=== PATIENT | female | born 1990 | race American Indian/Alaskan Native ===

== ENCOUNTER 2018-09-06 02:12 | Emergency (ER) | payer MEDICAID ==
[2018-09-06 02:45] VITALS: RESP 18; TEMP 99.2; O2SAT 100; BMI 28.0
[2018-09-06] MEDS ORDERED: Naproxen 550 mg Tab PO STA (03:06)
--- NOTE | 2018-09-06 03:12 | ED PDOC ---
Arrival/HPI - General Chief Complaint: Headache Time Seen by Provider: 09/06/18 02:30 Historian: Patient - History of Present Illness Narrative History of Present Illness (Text): 09/06/18 03:08 28 year old female, whose past medical history includes asthma, presents to the emergency department with headache, for 1 week. Patient states it feels like pressure around her forehead and face. Patient also describes pressure and po pping sensation in her ears. Patient informs having had a tooth infection and taking antibiotics for it until yesterday. Patient informs taking motrin for the pain, with some relief, but denies taking any today. Patient states headache woke her from her sleep. Patient denies any smoking, alcohol, or drug use. Patient also denies any visual changes, neck pain, cough, rhinorrhea, or any other complaints. Time/Duration: 1 week Symptom Onset: Gradual Symptom Course: Unchanged Quality: Pressure Context: Home Past Medical History - Provider Review Nursing Documentation Reviewed: Yes - Infectious Disease Hx of Infectious Diseases: None - Tetanus Immunization Tetanus Immunization: Unknown - Cardiac Hx Pacemaker: No - Pulmonary Hx Asthma: Yes - Neurological Hx Paralysis: No - HEENT Hx HEENT Disorder: No - Renal Hx Renal Disorder: No - Endocrine/Metabolic Hx Endocrine Disorders: No - Hematological/Oncological Hx Blood Transfusions: No Hx Blood Transfusion Reaction: No - Integumentary Hx Dermatological Disorder: No - Musculoskeletal/Rheumatological Hx Musculoskeletal Disorders: No - Gastrointestinal Hx Gastroesophageal Reflux: Yes - Genitourinary/Gynecological Hx Genitourinary Disorders: No - Psychiatric Hx Emotional Abuse: No Hx Physical Abuse: No Hx Substance Use: No - Past Surgical History Past Surgical History: No Previous - Surgical History Other/Comment: ENDOSCOPY - Anesthesia Hx Anesthesia: No Hx Anesthesia Reactions: No Hx Malignant Hyperthermia: No - Suicidal Assessment Feels Threatened In Home Enviroment: No Family/Social History - Physician Review Nursing Documentation Reviewed: Yes Family/Social History: No Known Family HX Smoking Status: Never Smoked Hx Alcohol Use: Yes (SOCIALLY) Frequency of alcohol use: Socially Hx Substance Use: No Hx Substance Use Treatment: No Allergies/Home Meds Allergies/Adverse Reactions: Allergies egg Adverse Reaction (Verified 09/06/18 02:52) ANGIOEDEMA Review of Systems - Physician Review All systems were reviewed & negative as marked: Yes - Review of Systems Eyes: absent: Vision Changes ENT: absent: Rhinorrhea Respiratory: absent: Cough Musculoskeletal: absent: Neck Pain Neurological: Headache Physical Exam Vital Signs Reviewed: Yes Vital Signs Temp Pulse Resp BP Pulse Ox 09/06/18 02:25 99.2 F 86 18 107/62 100 Temperature: Afebrile Blood Pressure: Normal Pulse: Regular Respiratory Rate: Normal Appearance: Positive for: Well-Appearing, Non-Toxic, Comfortable Pain Distress: None Mental Status: Positive for: Alert and Oriented X 3 - Systems Exam Head: Present: Atraumatic, Normocephalic Pupils: Present: PERRL Extroacular Muscles: Present: EOMI Conjunctiva: Present: Normal Mouth: Present: Moist Mucous Membranes, Other (Tender to maxillar sinuses) Nose (Internal): Present: Boggy, Other (Left Turbinate swollen; mucous membranes pink bilaterally). No: Rhinorrhea Neck: Present: Normal Range of Motion, Other (Supple; Full) Respiratory/Chest: Present: Clear to Auscultation, Good Air Exchange. No: Respiratory Distress, Accessory Muscle Use Cardiovascular: Present: Regular Rate and Rhythm, Normal S1, S2. No: Murmurs Abdomen: No: Tenderness, Distention, Peritoneal Signs Back: Present: Normal Inspection Upper Extremity: Present: Normal Inspection. No: Cyanosis, Edema Lower Extremity: Present: Normal Inspection. No: Edema Neurological: Present: Speech Normal Skin: Present: Warm, Dry, Normal Color. No: Rashes Psychiatric: Present: Alert, Oriented x 3, Normal Insight, Normal Concentration Medical Decision Making ED Course and Treatment: 09/06/18 03:18 Impression: 28 year old female presents with headache Plan: -- Naproxen -- Sudafed -- Urine -- Reassess and disposition Prior Visits: Notes and results from previous visits were reviewed. Progress Notes: 09/06/18 03:51 Upon reassessment patient states felling better and would like to go home. Patient is very well appearing and non-toxic. Vital signs are stable. I discussed the results of the work-up, diagnosis and treatment. Written discharge instructions were provided to patient. Additional verbal instructions were given and discussed with patient. We discussed the importance of follow up with PCP/consultants. I also reiterated reasons to immediately return to the ER including: worsening in current symptoms and/or new, continued, or concerning symptoms. Pt understood and agreed. - Medication Orders Current Medication Orders: Naproxen (Anaprox) 500 mg PO STAT STA Stop: 09/06/18 03:07 Pseudoephedrine HCl (Sudafed Tab) 60 mg PO STAT STA Stop: 09/06/18 03:06 - Scribe Statement The provider has reviewed the documentation as recorded by the Yeibe Cedric Barfield Provider Scribe Attestation: All medical record entries made by the Scribe were at my direction and personally dictated by me. I have reviewed the chart and agree that the record accurately reflects my personal performance of the history, physical exam, medical decision making, and the department course for this patient. I have also personally directed, reviewed, and agree with the discharge instructions and disposition. Disposition/Present on Arrival - Present on Arrival Any Indicators Present on Arrival: No History of DVT/PE: No History of Uncontrolled Diabetes: No Urinary Catheter: No History of Decub. Ulcer: No History Surgical Site Infection Following: None - Disposition Have Diagnosis and Disposition been Completed?: Yes Diagnosis: Sinus headache Disposition: HOME/ ROUTINE Disposition Time: 03:50 Patient Plan: Discharge Patient Problems: Current Active Problems Problem Status Onset Sinus headache Acute Condition: IMPROVED Discharge Instructions (ExitCare): Sinus Headache (DC) Prescriptions: Naproxen [Naprosyn Tab] 500 mg PO BID PRN #20 tab PRN Reason: Headache Referrals: Mario Yu MD [Primary Care Provider] - Follow up with primary Forms: [employer] (German)
[2018-09-06 03:56] VITALS: BP 112/60; PULSE 80
== END 2018-09-06 03:55 | disposition home or self-care (01) ==
LOC: ED 02:12
DX: R51 Headache (principal)

== ENCOUNTER 2018-09-09 05:58 | Emergency (ER) | payer MEDICAID ==
[2018-09-09 05:58] VITALS: BMI 28.0
[2018-09-09 06:47] VITALS: RESP 18; O2SAT 100
--- NOTE | 2018-09-09 07:15 | ED PDOC ---
Arrival/HPI <Karrie Velasquez - Last Filed: 09/09/18 14:06> - General Historian: Patient - History of Present Illness Narrative History of Present Illness (Text): 09/09/18 07:32 28F with a past medical history of Asthma presents to the Emergency department with a one week history of headaches, sinus congestion and facial pressure. Pt recently presented to [facility] Emergency department on 09/06 and she was sent home with Naproxen and A Decongestant. Pt has been taking them as well as vicks rub but has had no relief. States headaches is worse when she lays down flat or extends her head. She goes to a chiropractor for her chronic neck arm and leg pains. Pt is very anxious about this headache and reports sleep disturbances associated with this. She also complains of ear fullness and popping. Pt also recently had a dental procedure resulting in a infection which required antibiotics. Of note, Pt did not buy the pseudophed as recommended, pt had imoproved when it was given on last Emergency department visit. ROS: POS+ MARIEE, sinus congest, popping in ears, worse w/ extension, nasal congestion, recent sick (tooth infection) NEG- nausea, vomiting, fevers, chills, chest pain, short of breath, cough, blood w/ BMs, recent fall, 09/09/18 07:42 <Ascencion Garner - Last Filed: 09/09/18 15:38> - General Chief Complaint: Headache Time Seen by Provider: 09/09/18 07:10 Past Medical History - Infectious Disease Hx of Infectious Diseases: None - Tetanus Immunization Tetanus Immunization: Unknown - Cardiac Hx Pacemaker: No - Pulmonary Hx Asthma: Yes - Neurological Hx Paralysis: No - HEENT Hx HEENT Disorder: No - Renal Hx Renal Disorder: No - Endocrine/Metabolic Hx Endocrine Disorders: No - Hematological/Oncological Hx Blood Transfusions: No Hx Blood Transfusion Reaction: No - Integumentary Hx Dermatological Disorder: No - Musculoskeletal/Rheumatological Hx Musculoskeletal Disorders: No - Gastrointestinal Hx Gastroesophageal Reflux: Yes - Genitourinary/Gynecological Hx Genitourinary Disorders: No - Psychiatric Hx Emotional Abuse: No Hx Physical Abuse: No Hx Substance Use: No - Past Surgical History Past Surgical History: No Previous - Surgical History Other/Comment: ENDOSCOPY - Anesthesia Hx Anesthesia: No Hx Anesthesia Reactions: No Hx Malignant Hyperthermia: No - Suicidal Assessment Feels Threatened In Home Enviroment: No <Ascencion Garner - Last Filed: 09/09/18 15:38> Family/Social History Family/Social History: Unknown Family HX Smoking Status: Never Smoked Hx Alcohol Use: Yes (SOCIALLY) Hx Substance Use: No Hx Substance Use Treatment: No <Ascencion Garner - Last Filed: 09/09/18 15:38> Allergies/Home Meds <Karrie Velasquez - Last Filed: 09/09/18 14:06> <Ascencion Garner - Last Filed: 09/09/18 15:38> Allergies/Adverse Reactions: Allergies egg Adverse Reaction (Verified 09/09/18 06:53) ANGIOEDEMA Review of Systems - Physician Review All systems were reviewed & negative as marked: Yes (as per HPI) <Ascencion Garner - Last Filed: 09/09/18 15:38> Physical Exam Vital Signs Temp Pulse Resp BP Pulse Ox 09/09/18 06:46 98.2 F 83 18 127/53 L 100 <Karrie Velasquez - Last Filed: 09/09/18 14:06> - Physical Exam Narrative Physical Exam (Text): 09/09/18 08:02 Pt is smiling sitting comfortably in bed, pt in no acute distress Vital Signs Reviewed: Yes Vital Signs Temp Pulse Resp BP Pulse Ox 09/09/18 06:46 98.2 F 83 18 127/53 L 100 - Systems Exam Head: Present: Atraumatic, Normocephalic, Tenderness (bilaterl frontal and maxillary sinuses) Pupils: Present: PERRL Extroacular Muscles: Present: EOMI. No: Gaze Palsy Conjunctiva: Present: Normal Ears: Present: Other (mild fluid seen behind bilateral TMs) Mouth: Present: Moist Mucous Membranes, Normal Tounge Nose (Internal): Present: Other (swollen bilateral turbinates) Neck: Present: Normal Range of Motion. No: Meningeal Signs Respiratory/Chest: Present: Clear to Auscultation Cardiovascular: Present: Regular Rate and Rhythm, Normal S1, S2 Abdomen: No: Tenderness, Distention Neurological: Present: GCS=15, CN II-XII Intact, Speech Normal, Motor Func Grossly Intact, Normal Sensory Function, Other (strenght 5/5 in upper and lower extremitites bilaterally) Skin: Present: Warm, Normal Color Psychiatric: Present: Alert, Oriented x 3, Anxious <Ascencion Garner - Last Filed: 09/09/18 15:38> Medical Decision Making ED Course and Treatment: In agreement with resident note, which includes further HPI details. Patient was seen and evaluated with resident, came up with plan and treatment together. <Karrie Velasquez - Last Filed: 09/09/18 14:06> - Medication Orders Current Medication Orders: 09/09/18 08:03 Pt is instructed to purchase OTC pseudophed <Ascencion Garner - Last Filed: 09/09/18 15:38> Disposition/Present on Arrival <VelasquezKarrie - Last Filed: 09/09/18 14:06> - Present on Arrival Any Indicators Present on Arrival: No History of DVT/PE: No History of Uncontrolled Diabetes: No Urinary Catheter: No History of Decub. Ulcer: No History Surgical Site Infection Following: None - Disposition Have Diagnosis and Disposition been Completed?: Yes Disposition Time: 08:04 Patient Plan: Discharge <Ascencion Garner - Last Filed: 09/09/18 15:38> - Disposition Diagnosis: Sinus headache Disposition: HOME/ ROUTINE Condition: GOOD Discharge Instructions (ExitCare): Sinus Headache (DC) Additional Instructions: DESTINEE THOMAS, thank you for letting us take care of you today. Your provider was Karrie Velasquez MD and you were treated for headache. The emergency medical care you received today was directed at your acute symptoms. If you were prescribed any medication, please fill it and take as directed. It may take several days for your symptoms to resolve. Return to the Emergency Department if your symptoms worsen, do not improve, or if you have any other problems. Please contact your doctor in 1-2 days for follow up appointment. Bring any paperwork you were given at discharge with you along with any medications you are taking to your follow up visit. Our treatment cannot replace ongoing medical care by a primary care provider outside of the emergency department. Thank you for allowing the [facility] team to be part of your care today. Referrals: Carlos Yu MD [Primary Care Provider] - Follow up with primary Forms: [employer] (Greek)
[2018-09-09 09:23] VITALS: BP 130/84; PULSE 81; TEMP 98
== END 2018-09-09 08:20 | disposition home or self-care (01) ==
LOC: ED 05:58
DX: R51 Headache (principal)

== ENCOUNTER 2018-10-18 17:14 | Emergency (ER) | payer MEDICAID ==
[2018-10-18 17:22] VITALS: BMI 29.7
[2018-10-18 17:49] VITALS: BP 116/83; PULSE 77; RESP 18; O2SAT 100
--- NOTE | 2018-10-18 17:54 | ED PDOC ---
Arrival/HPI - General Chief Complaint: Chest Pain Time Seen by Provider: 10/18/18 17:18 Historian: Patient - History of Present Illness Narrative History of Present Illness (Text): 10/18/18 17:57 28 yo F with no PMH, reports sternal chest pain which started this afternoon while she was resting at home. She also c/o 2 month h/o pain, weakness, numbness to the L hand, wrist and arm. Otherwise: (-) radiation, (-) diaphoresis, (-) dyspnea, (-) SOB, (-) pleuritic component, (-) ripping or tearing quality, (-) positional component, (-) exertional component, (-) fever, (-) URI, (-) dizziness, (-) syncope, (-) nausea, (-) vomiting, (-) calf swelling/pain, (-) neuro deficits, (-) trauma, (-) injury. PMD [place] Past Medical History - Infectious Disease Hx of Infectious Diseases: None - Tetanus Immunization Tetanus Immunization: Unknown - Cardiac Hx Pacemaker: No - Pulmonary Hx Asthma: Yes - Neurological Hx Paralysis: No - HEENT Hx HEENT Disorder: No - Renal Hx Renal Disorder: No - Endocrine/Metabolic Hx Endocrine Disorders: No - Hematological/Oncological Hx Blood Transfusions: No Hx Blood Transfusion Reaction: No - Integumentary Hx Dermatological Disorder: No - Musculoskeletal/Rheumatological Hx Musculoskeletal Disorders: No - Gastrointestinal Hx Gastroesophageal Reflux: Yes - Genitourinary/Gynecological Hx Genitourinary Disorders: No - Psychiatric Hx Emotional Abuse: No Hx Physical Abuse: No Hx Substance Use: No - Past Surgical History Past Surgical History: No Previous - Surgical History Other/Comment: ENDOSCOPY - Anesthesia Hx Anesthesia: No Hx Anesthesia Reactions: No Hx Malignant Hyperthermia: No - Suicidal Assessment Feels Threatened In Home Enviroment: No Family/Social History Family/Social History: Hypertension Smoking Status: Never Smoked Hx Alcohol Use: Yes (SOCIALLY) Frequency of alcohol use: Socially Hx Substance Use: No Hx Substance Use Treatment: No Allergies/Home Meds Allergies/Adverse Reactions: Allergies egg Adverse Reaction (Verified 10/18/18 17:22) ANGIOEDEMA Review of Systems - Review of Systems Constitutional: absent: Fatigue, Fevers Respiratory: absent: SOB, Cough Cardiovascular: Chest Pain. absent: Palpitations Gastrointestinal: absent: Abdominal Pain, Nausea, Vomiting Musculoskeletal: Arthralgias, Myalgias. absent: Back Pain, Neck Pain Skin: absent: Rash, Pruritis, Skin Lesions Neurological: absent: Headache, Dizziness Physical Exam Vital Signs Pulse Resp BP Pulse Ox 10/18/18 17:49 77 18 116/83 100 Blood Pressure: Normal Pulse: Regular Respiratory Rate: Normal Appearance: Positive for: Well-Appearing, Non-Toxic, Comfortable Pain Distress: None Mental Status: Positive for: Alert and Oriented X 3 - Systems Exam Head: Present: Atraumatic, Normocephalic Pupils: Present: PERRL Extroacular Muscles: Present: EOMI Conjunctiva: Present: Normal Mouth: Present: Moist Mucous Membranes Neck: Present: Normal Range of Motion Respiratory/Chest: Present: Clear to Auscultation, Good Air Exchange. No: Respiratory Distress, Accessory Muscle Use, Tender to Palpation Cardiovascular: Present: Regular Rate and Rhythm, Normal S1, S2. No: Murmurs Abdomen: No: Tenderness, Distention, Peritoneal Signs Back: Present: Normal Inspection Upper Extremity: Present: Normal Inspection, Normal ROM, NORMAL PULSES, Neurovascularly Intact, Capillary Refill < 2s, Norm 2-Pt Discrimination. No: Cyanosis, Edema, Tenderness, Swelling, Erythema, Temperature Abnormalties, Deformity Lower Extremity: Present: Normal Inspection. No: Edema Neurological: Present: GCS=15, CN II-XII Intact, Speech Normal, Motor Func Grossly Intact, Normal Sensory Function Skin: Present: Warm, Dry, Normal Color. No: Rashes Psychiatric: Present: Alert, Oriented x 3, Normal Insight, Normal Concentration Medical Decision Making ED Course and Treatment: 10/18/18 17:54 EKG: NSR at 76 bpm, (-) acute ST changes, as read by PA. Pre-made cock up splint applied. Advised to follow up with primary care physician in 1-2 days without fail. Advised to take medication as prescribed. Return to the emergency room at any time for any new or worsening symptoms. Patient states she fully agrees with and understands discharge instructions. States that she agrees with the plan and disposition. Verbalized and repeated discharge instructions and plan. I have given the patient opportunity to ask any additional questions. - PA / SNOW REMOVING SUPERVISOR / Resident Statement MD/DO has reviewed & agrees with the documentation as recorded. Disposition/Present on Arrival - Present on Arrival Any Indicators Present on Arrival: No History of DVT/PE: No History of Uncontrolled Diabetes: No Urinary Catheter: No History of Decub. Ulcer: No History Surgical Site Infection Following: None - Disposition Have Diagnosis and Disposition been Completed?: Yes Diagnosis: Chest pain, Left arm pain Disposition: HOME/ ROUTINE Disposition Time: 17:50 Patient Plan: Discharge Patient Problems: Current Active Problems Problem Status Onset Chest pain Acute Left arm pain Acute Condition: STABLE Discharge Instructions (ExitCare): Chest Pain (ED) Additional Instructions: Thank you for letting us take care of you today. You were treated for chest pain, left arm/hand pain, possible carpal tunnel syndrome. The emergency medical care you received today was directed at your acute symptoms. If you were prescribed any medication, please fill it and take as directed. It may take several days for your symptoms to resolve. Return to the Emergency Department if your symptoms worsen, do not improve, or if you have any other problems. Please contact your doctor in 2 days for re-evaluation and follow up. Bring any paperwork you were given at discharge with you along with any medications you are taking to your follow up visit. Our treatment cannot replace ongoing medical care by a primary care provider (PCP) outside of the emergency department. Thank you for allowing the [facility] team to be part of your care today. Prescriptions: Naproxen 500 mg PO BID #30 tab Forms: [employer] (Greek), WORK NOTE
--- NOTE | 2018-10-18 23:09 | CARD ---
APPROVED REPORT Date of service: 10/18/2018 EKG Measurement Heart [id number] <Conclusion> Normal sinus rhythm Normal ECG
== END 2018-10-18 18:12 | disposition home or self-care (01) ==
LOC: ED 17:14
DX: R07.9 Chest pain, unspecified (principal); M79.602 Pain in left arm

== ENCOUNTER 2018-11-09 00:22 | Emergency (ER) | payer MEDICAID ==
[2018-11-09 00:29] VITALS: BP 123/75; PULSE 86; RESP 18; TEMP 97.8; O2SAT 98; BMI 30.5
--- NOTE | 2018-11-09 00:35 | ED PDOC ---
Arrival/HPI - General Chief Complaint: Lower Extremity Problem/Injury Historian: Patient - History of Present Illness Narrative History of Present Illness (Text): 11/09/18 00:32 28 y/o female, no significant pmh, nkda, c/o lt. calf pain x 1 week with no fall or trauma. Pt. stated that she stands alot, no numbness or tingling, no rash, no night sweat, no dizziness, not on control, no other medical or psychological complaints. Past Medical History - Provider Review Nursing Documentation Reviewed: Yes - Infectious Disease Hx of Infectious Diseases: None - Tetanus Immunization Tetanus Immunization: Unknown - Reproductive Currently : Unknown - Cardiac Hx Pacemaker: No - Pulmonary Hx Asthma: Yes - Neurological Hx Paralysis: No - HEENT Hx HEENT Disorder: No - Renal Hx Renal Disorder: No - Endocrine/Metabolic Hx Endocrine Disorders: No - Hematological/Oncological Hx Blood Transfusions: No Hx Blood Transfusion Reaction: No - Integumentary Hx Dermatological Disorder: No - Musculoskeletal/Rheumatological Hx Musculoskeletal Disorders: No - Gastrointestinal Hx Gastroesophageal Reflux: Yes - Genitourinary/Gynecological Hx Genitourinary Disorders: No - Psychiatric Hx Emotional Abuse: No Hx Physical Abuse: No Hx Substance Use: No - Past Surgical History Past Surgical History: No Previous - Surgical History Other/Comment: ENDOSCOPY - Anesthesia Hx Anesthesia: No Hx Anesthesia Reactions: No Hx Malignant Hyperthermia: No - Suicidal Assessment Feels Threatened In Home Enviroment: No Family/Social History - Physician Review Nursing Documentation Reviewed: Yes Family/Social History: Unknown Family HX Smoking Status: Never Smoked Hx Alcohol Use: Yes (SOCIALLY) Hx Substance Use: No Hx Substance Use Treatment: No Allergies/Home Meds Allergies/Adverse Reactions: Allergies egg Adverse Reaction (Verified 11/09/18 00:31) ANGIOEDEMA Review of Systems - Review of Systems Constitutional: absent: Fatigue, Fevers Eyes: absent: Vision Changes ENT: absent: Hearing Changes Respiratory: absent: SOB, Cough Cardiovascular: absent: Chest Pain Gastrointestinal: absent: Abdominal Pain, Diarrhea, Nausea, Vomiting Musculoskeletal: Myalgias. absent: Arthralgias, Back Pain, Neck Pain, Joint Swelling Skin: absent: Rash, Pruritis Neurological: absent: Headache, Dizziness Psychiatric: absent: Anxiety, Depression, Suicidal Ideation Physical Exam Vital Signs Reviewed: Yes Vital Signs Temp Pulse Resp BP Pulse Ox 11/09/18 00:29 97.8 F 86 18 123/75 98 Temperature: Afebrile Blood Pressure: Normal Pulse: Regular Respiratory Rate: Normal Appearance: Positive for: Well-Appearing, Non-Toxic, Comfortable Pain Distress: Mild Mental Status: Positive for: Alert and Oriented X 3 - Systems Exam Head: Present: Atraumatic, Normocephalic Pupils: Present: PERRL Extroacular Muscles: Present: EOMI Conjunctiva: Present: Normal Mouth: Present: Moist Mucous Membranes Neck: Present: Normal Range of Motion Respiratory/Chest: Present: Clear to Auscultation, Good Air Exchange. No: Respiratory Distress, Accessory Muscle Use Cardiovascular: Present: Regular Rate and Rhythm, Normal S1, S2. No: Murmurs Abdomen: No: Tenderness, Distention, Peritoneal Signs, Rebound, Guarding Back: Present: Normal Inspection Upper Extremity: Present: Normal Inspection. No: Cyanosis, Edema Lower Extremity: Present: Normal Inspection, CALF TENDERNESS (left ), NORMAL PULSES, Normal ROM, Neurovascularly Intact, Capillary Refill < 2 s. No: Edema, Tenderness, Swelling, Deformity, Temperature Abnormalties Neurological: Present: GCS=15, CN II-XII Intact, Speech Normal Skin: Present: Warm, Dry, Normal Color. No: Rashes Psychiatric: Present: Alert, Oriented x 3, Normal Insight, Normal Concentration Medical Decision Making ED Course and Treatment: 11/09/18 00:34 -DVT -observe and reassess 11/09/18 01:04 -LLE Venuous doppler: as per preliminary report, no acute DVT -Pt. feels well, request to be discharged home. -Discharge home with tylenol, bed rest, heat compression, follow up with your own pmd and orthopedic within 2 days, return to the ER for any new or worsening signs or symptoms. - RAD Interpretation Radiology Orders: 11/09/18 00:32 DUPLEX LOWER EXTRM VEIN LEFT [US] Stat -LLE Venuous doppler: as per preliminary report, no acute DVT Golf Professional: Radiologist - PA / STRIP CUTTER / Resident Statement MD/DO has reviewed & agrees with the documentation as recorded. Disposition/Present on Arrival - Present on Arrival Any Indicators Present on Arrival: No History of DVT/PE: No History of Uncontrolled Diabetes: No Urinary Catheter: No History of Decub. Ulcer: No History Surgical Site Infection Following: None - Disposition Have Diagnosis and Disposition been Completed?: Yes Diagnosis: Leg pain Disposition: HOME/ ROUTINE Disposition Time: 01:04 Patient Plan: Discharge Condition: IMPROVED Additional Instructions: -Discharge home with tylenol, bed rest, heat compression, follow up with your own pmd and orthopedic within 2 days, return to the ER for any new or worsening signs or symptoms. Prescriptions: Acetaminophen 2 tab PO QID PRN #30 tab PRN Reason: Other Referrals: Doroteo Martinez MD [Staff Provider] - Follow up with primary [facility] at [facility] [place] [Outside] - Follow up with primary Forms: [employer] (Albanian), WORK NOTE
--- NOTE | 2018-11-09 13:45 | US ---
PROCEDURE: Left lower extremity venous US HISTORY: Leg pain and swelling. Evaluate for DVT. PHYSICIAN(S): Cedric Ng MD. TECHNIQUE: Duplex sonography and color-flow Doppler with graded compression were used to evaluate the deep venous system of the left lower extremity. FINDINGS: The visualized deep venous system of the left lower extremity is sonographically normal and compressible. Normal wave forms and augmentation are seen. There is no sonographic evidence for deep venous thrombosis in the visualized segments of the left lower extremity. IMPRESSION: 1. No sonographic evidence for deep venous thrombosis in the visualized segments of the left lower extremity.
== END 2018-11-09 01:21 | disposition home or self-care (01) ==
LOC: ED 00:22
DX: M79.605 Pain in left leg (principal)